=== PATIENT | female | born 1990 | race Caucasian/White ===

== ENCOUNTER 2019-03-04 07:50 | Inpatient (IN) ==
[2019-03-04] MEDS ORDERED: OXYTOCIN 30 UNITS/500 ML BAG IV PRN ×3 (08:22→20:47)
[2019-03-04] MEDS ORDERED: PENICILLIN G POTASSIUM 6 MU in DEXTROSE 5% 250 ML IV STA (08:22)
[2019-03-04] MEDS ORDERED: miSOPROStoL 50 MCG TAB PO SCH (08:30)
[2019-03-04 08:55] LABS: Hematocrit (blood only) 34.4 % (37-47); Hemoglobin 11.3 g/dL (12.0-16.0); Mean Corpuscular Volume 85.1 fL (80-100); RDW Coefficient of Variation 13.8 % (11.5-14.5); RDW Standard Deviation 42.2 fL (36.4-46.3); Red Blood Count 4.04 M/uL (4.2-5.4); White Blood Count 8.67 K/uL (4.8-10.8)
[2019-03-04 09:08] LABS: Mean Corpuscular Hgb Conc 32.8 g/dL (32-36); Mean Platelet Volume 13.3 fL (7.4-10.4); Platelet Count 138 K/uL (130-400); Platelet Estimate Normal (Normal)
[2019-03-04] MEDS: LACTATED RINGER'S 1,000 ML IV PRN ×3 (09:25→18:21)
[2019-03-04] MEDS: PENICILLIN G POTASSIUM 3 MU in DEXTROSE 5% 100 ML IV SCH ×2 (13:12→17:06)
[2019-03-04] MEDS ORDERED: ePHEDrine sulfate 50 MG/ML AMP ONE (17:04)
[2019-03-04] MEDS ORDERED: BUPIVACAINE 0.25% 30 ML VIAL ONE (17:04)
[2019-03-04] MEDS ORDERED: fentaNYL citrate 100 MCG/2 ML VIAL ONE (17:04)
[2019-03-04] MEDS ORDERED: fentaNYL 2MCG/ML ROPIV 1.25MG/ML 100 ML BAG EPI ONE (17:05)
--- NOTE | 2019-03-04 17:51 | Anesthesiology Consultation ---
Date of Service March 04, 2019 Assessment & Plan Chart Review Chart Review: Acceptable Risk for Labor Epidural Consults Requested none History Height/Weight Height: 5 ft 4 in Weight: 97.976 kg Allergies Allergy/AdvReac Type Severity Reaction Status Date / Time nickel Allergy Mild Hives Verified 03/04/19 08:44 morphine Allergy Unknown unknown Verified 01/18/19 23:07 Medications Home Medications Medication Instructions Recorded Confirmed Last Taken ursodiol 300 mg PO BID 03/04/19 03/04/19 03/04/19 06:45 Active Medications Generic Name Dose Route Start Last Admin Trade Name Freq PRN Reason Stop Dose Admin Lactated Ringer's 1,000 mls @ 125 mls/hr 03/04/19 08:22 03/04/19 17:40 Lr IV 03/06/19 08:21 125 mls/hr .Q8H PRN Administration L&D Protocol Protocol Penicillin G Potassium 3 mu/ 106 mls @ 100 mls/hr 03/04/19 13:30 03/04/19 17:06 Dextrose IV 03/14/19 13:29 100 mls/hr Q4H MINISTERIO Administration Protocol Oxytocin 30 units in 500 mls @ 6 mls/hr 03/04/19 13:13 03/04/19 16:46 Pitocin IV 03/06/19 13:12 0.36 units/hr .Q24H PRN 6 mls/hr Labor Induction/Augmentation Titration Protocol 0.36 UNITS/HR Misoprostol 50 mcg 03/04/19 08:30 03/04/19 09:36 Cytotec PO 04/03/19 08:29 50 mcg ONCE MINISTERIO Administration Past Medical History Medical History History of gestational diabetes with last in 2013 Spontaneous vaginal delivery 2013 LFM was GDM - diet controlled Register teeth extracted 2009 Past Family History Family History Grandfather (Paternal) Diabetes Cancer Grandmother (Paternal) Breast cancer Past Surgical History Surgical History H/O breast augmentation at age 21 Hx of tonsillectomy in third grade Social History Smoking Status: Former smoker tobacco type: cigarettes Do You Dip or Chew Tobacco: No Hx Alcohol Use: Yes (when not ) Alcohol type: beer, wine and hard liquor alcohol intake frequency: holidays/special occasions only Hx Substance Use: No substance use type: does not use Physical Exam Vital Signs Last Vital Signs Temp 36.4 C L 03/04/19 15:00 Pulse 64 03/04/19 17:49 Resp 16 03/04/19 16:04 BP 123/68 03/04/19 17:49 Pulse Ox 99 03/04/19 17:48 Testing Laboratory Results 03/04/19 08:32
[2019-03-04] MEDS ORDERED: NALOXONE HCL 1 MG in SODIUM CHLORIDE 0.9% 1000ML 1,000 ML IV PRN (17:53)
[2019-03-04] MEDS ORDERED: fentaNYL 2MCG/ML ROPIV 1.25MG/ML 100 ML BAG EPI PRN (17:53)
[2019-03-04] MEDS ORDERED: ePHEDrine sulfate 50 MG/ML AMP IV PRN (17:53)
[2019-03-04] MEDS ORDERED: DiphenhydrAMINE HCL 50 MG/ML VIAL IV PRN (17:53)
[2019-03-04] MEDS ORDERED: NALBUPHINE HCL INJ 10 MG/ML AMP IV PRN (17:53)
[2019-03-04] MEDS ORDERED: NALOXONE HCL 0.4 MG/1 ML VIAL/CARP IV PRN (17:53)
[2019-03-04] MEDS ORDERED: METHYLERGONOVINE MALEATE 0.2 MG/ML AMP ONE (20:44)
[2019-03-04] MEDS ORDERED: BENZOCAINE 20% AER SPR 82.5 GM CAN EXT PRN (20:47)
[2019-03-04] MEDS ORDERED: ACETAMINOPHEN W/CODEINE #3 1 TAB PO PRN (20:47)
[2019-03-04] MEDS ORDERED: SUPERCREAM 0.870% 15 GM JAR EXT PRN (20:47)
[2019-03-04] MEDS ORDERED: ACETAMINOPHEN 325 MG TAB PO PRN (20:47)
[2019-03-04] MEDS ORDERED: BISACODYL 10 MG SUPP PR PRN (20:47)
[2019-03-04] MEDS ORDERED: HYDROCORTISONE ACETATE 25 MG SUPP PR PRN (20:47)
[2019-03-04] MEDS ORDERED: METHYLERGONOVINE MALEATE 0.2 MG/ML AMP IM ONE (20:47)
[2019-03-04] MEDS ORDERED: DIPHTHERIA/TETANUS/PERTUSSIS 0.5 ML SYR/VIAL IM ONE (20:47)
[2019-03-04] MEDS ORDERED: OXYCODONE/ACETAMINOPHEN 5mg/325mg TAB PO PRN (20:47)
[2019-03-04] MEDS ORDERED: VARICELLA VIRUS VACCINE LIVE VIAL SQ ONE (20:47)
--- NOTE | 2019-03-04 22:09 | Anesthesia Procedure Note ---
Date of Service March 04, 2019 Anesthesia Post Epidural Note Vital Signs Vital Signs: Temp Pulse Resp BP Pulse Ox 37.2 C 71 20 146/78 H 98 03/04/19 19:58 03/04/19 22:01 03/04/19 21:31 03/04/19 22:01 03/04/19 20:38 Notes Mental Status: alert / awake / arousable and participated in evaluation Patient Amnestic to Procedure: Yes Nausea / Vomiting: adequately controlled Pain: adequately controlled Airway Patency, RR, SpO2: stable & adequate BP & HR: stable & adequate Hydration State: stable & adequate Anesthetic Complications: no major complications apparent and Pt Satisfied with anesthetic care
--- NOTE | 2019-03-04 22:43 | Operative Report ---
DATE OF OPERATION: 03/04/2019 DELIVERY NOTE 2, para 1. Blood type A positive, vaginal beta strep positive, was brought in for induction at 39 weeks with history of gestational diabetes. She was brought in for a check. She was like 4-5 cm. She was started off with a p.o. dose of Cytotec 50 mcg then later she was switched to the epidural, she labored without pain meds until we broke the water at which time she requested epidural. She received epidural. She got good pain relief. We continued with the Pitocin. She progressed steadily, head came down, cervix dilated. She went to full dilatation, delivered a live via direct occiput anterior position over an intact perineum. was suctioned through the mouth and the nose. There was a nuchal cord x2, which was reduced over the head. Body was delivered without difficulty. Cord was clamped, cut by the father. There was a true knot in the cord. With IV Pitocin running, the placenta was removed intact. She was also given 0.2 IM Methergine. Uterus contracted nicely. Hemostasis was good. There were no lacerations. Estimated blood loss was 300 mL. Apgars will be deferred to the nurses. I attest to the content of the Intraoperative Record and any orders documented therein. Any exception s are noted below.
[2019-03-04] MEDS: IBUPROFEN 600 MG TAB PO PRN (23:03)
[2019-03-05 07:37] LABS: Mean Corpuscular Hgb Conc 32.5 g/dL (32-36)
[2019-03-05 08:09] LABS: Hematocrit (blood only) 35.1 % (37-47); Hemoglobin 11.4 g/dL (12.0-16.0); Mean Corpuscular Hemoglobin 28.1 pg (25-34); Mean Corpuscular Volume 86.5 fL (80-100); Mean Platelet Volume 13.5 fL (7.4-10.4); Platelet Count 130 K/uL (130-400); Platelet Estimate Decreased (Normal); RDW Coefficient of Variation 13.8 % (11.5-14.5); RDW Standard Deviation 43.4 fL (36.4-46.3); Red Blood Count 4.06 M/uL (4.2-5.4); White Blood Count 12.73 K/uL (4.8-10.8)
--- NOTE | 2019-03-05 08:19 | Obstetrical Progress Note ---
Date of Service March 05, 2019 Subjective Patient is seen and examined. She feels well, no complaints. Ambulating without dizziness Voiding without difficulty Tolerating regular diet with out N&V Bleeding is minimal No fever/ chills/ CP/ SOB/ N&V/ Leg pain Breast feeding without problems Vital Signs Temp Pulse Pulse Resp BP BP Pulse Ox 03/05/19 07:45 36.5 C 62 20 135/84 99 03/05/19 03:15 36.9 C 74 16 128/72 99 03/04/19 23:15 36.9 C 86 18 138/83 03/04/19 23:01 37.1 C 86 20 138/83 03/04/19 22:46 85 142/86 H 03/04/19 22:31 81 140/82 03/04/19 22:16 82 139/84 03/04/19 22:01 71 18 146/78 H 03/04/19 21:47 80 20 136/72 03/04/19 21:31 76 20 135/63 03/04/19 21:16 85 20 142/86 H 03/04/19 21:01 86 20 139/85 03/04/19 20:46 85 145/86 H 03/04/19 20:38 115 H 98 03/04/19 20:33 83 99 03/04/19 20:32 83 139/89 03/04/19 20:28 69 99 03/04/19 20:23 81 100 03/04/19 20:18 75 100 03/04/19 20:17 75 131/79 03/04/19 20:13 77 100 03/04/19 20:08 81 97 03/04/19 20:03 76 98 03/04/19 20:01 80 119/79 03/04/19 19:58 37.2 C 76 16 98 03/04/19 19:53 71 100 03/04/19 19:48 64 96 03/04/19 19:47 62 102/58 L 03/04/19 19:43 65 98 03/04/19 19:38 67 97 03/04/19 19:33 58 L 97 03/04/19 19:32 62 91/52 L 03/04/19 19:28 64 99 03/04/19 19:24 65 94/53 L 03/04/19 19:23 71 98 03/04/19 19:18 58 L 88/50 L 97 03/04/19 19:13 59 L 97 03/04/19 19:08 56 L 97 03/04/19 19:03 64 97 03/04/19 19:01 61 16 115/64 03/04/19 18:58 69 98 03/04/19 18:53 68 97 03/04/19 18:48 73 97 03/04/19 18:46 37.0 C 66 16 119/72 03/04/19 18:43 68 98 03/04/19 18:38 69 97 03/04/19 18:33 68 124/74 98 03/04/19 18:28 69 97 03/04/19 18:23 75 100 03/04/19 18:18 74 100 03/04/19 18:16 65 120/70 03/04/19 18:13 77 97 03/04/19 18:08 67 96 03/04/19 18:03 68 98 03/04/19 17:59 61 124/67 03/04/19 17:58 61 99 03/04/19 17:54 63 124/71 03/04/19 17:53 63 98 03/04/19 17:49 64 123/68 03/04/19 17:48 69 99 03/04/19 17:43 76 121/72 99 03/04/19 17:41 65 128/79 03/04/19 17:39 58 L 130/79 03/04/19 17:38 61 99 03/04/19 17:37 68 129/74 03/04/19 17:35 64 135/80 03/04/19 17:33 77 139/71 98 03/04/19 17:28 68 100 03/04/19 17:23 69 100 03/04/19 17:21 89 90 03/04/19 17:18 95 H 98 03/04/19 17:13 101 H 99 03/04/19 16:04 75 16 133/91 03/04/19 15:00 36.4 C L 20 03/04/19 14:52 67 130/83 03/04/19 14:05 37.2 C 78 18 126/82 03/04/19 11:55 37.2 C 18 03/04/19 11:51 71 122/83 03/04/19 09:47 36.9 C 76 18 125/77 Intake and Output 03/04/19 03/05/19 03/05/19 22:59 06:59 14:59 Intake Total 1945.834 / 2051.834 Output Total 950 / 2700 800 / 2700 Balance 995.834 / -648.166 -800 / -648.166 Intake: IV 1945.834 / 2051.834 Lr 1,000 ml @ 125 mls/hr IV . 1445.834 / 1445.834 Q8H PRN Rx#:[id number] PITOCIN 30 units In 500 ml @ 19 500.000 / 500.000 .98 UNITS/HR 333 mls/hr IV . Q1H31M PRN Rx#:[id number] Output: Urine 600 / 2350 800 / 2350 Urine Amount (Catheter) 350 / 350 Straight 350 / 350 Other: Weight 97.976 kg PE: General: Alert, orientedx3, NAD Abd: soft, NT, fundus firm, below Umbilicus Perineum intact, Lochia rubra minimal Ext; NT, no edema AP: 28 yo s/p , ppd# 1 VSS Afebrile doing well Continue routine care All questions were answered D/C home tomorrow Results & Data Vital Signs (Past 12 Hours) Vital Signs Temp Pulse Pulse Resp BP BP Pulse Ox 03/05/19 07:45 36.5 C 62 20 135/84 99 03/05/19 03:15 36.9 C 74 16 128/72 99 03/04/19 23:15 36.9 C 86 18 138/83 03/04/19 23:01 37.1 C 86 20 138/83 03/04/19 22:46 85 142/86 H 03/04/19 22:31 81 140/82 03/04/19 22:16 82 139/84 03/04/19 22:01 71 18 146/78 H 03/04/19 21:47 80 20 136/72 03/04/19 21:31 76 20 135/63 03/04/19 21:16 85 20 142/86 H 03/04/19 21:01 86 20 139/85 03/04/19 20:46 85 145/86 H 03/04/19 20:38 115 H 98 03/04/19 20:33 83 99 03/04/19 20:32 83 139/89 03/04/19 20:28 69 99 03/04/19 20:23 81 100
[2019-03-05] MEDS: DOCUSATE SODIUM 100 MG CAP PO SCH ×2 (08:37→20:37)
[2019-03-05] MEDS: PRENATAL VITAMIN 1 TAB PO SCH (08:38)
[2019-03-05] MEDS: FERROUS SULFATE 325 MG TAB PO SCH (08:38)
[2019-03-05] MEDS: IBUPROFEN 600 MG TAB PO PRN ×3 (09:41→23:51)
[2019-03-05] MEDS ORDERED: BISACODYL 5 MG TABEC PO SCH (20:00)
[2019-03-06 01:11] VITALS: TEMP 98.1
[2019-03-06 06:52] LABS: Hematocrit (blood only) 32.3 % (37-47); Hemoglobin 10.3 g/dL (12.0-16.0)
[2019-03-06 07:32] VITALS: BP 125/79; PULSE 82; O2SAT 99
[2019-03-06] MEDS: PRENATAL VITAMIN 1 TAB PO SCH (08:27)
[2019-03-06] MEDS: DOCUSATE SODIUM 100 MG CAP PO SCH (08:28)
[2019-03-06] MEDS: FERROUS SULFATE 325 MG TAB PO SCH (08:28)
--- NOTE | 2019-03-06 09:19 | Obstetrical Progress Note ---
Date of Service March 06, 2019 Assessment & Plan (1) normal course: PPd #2 pt doing well d/c home with institutions Results & Data Vital Signs (Past 12 Hours) Vital Signs Temp Pulse Resp BP Pulse Ox 03/06/19 07:31 36.7 C 82 18 125/79 99 03/05/19 23:40 36.7 C 78 17 125/80 98
== END 2019-03-06 13:20 | disposition home or self-care (01) | DRG 807 ==
LOC: 4S1 07:50 → 4S2 23:55